=== PATIENT | male | born 1985 | race Caucasian/White ===

== ENCOUNTER 2016-09-20 09:58 | Outpatient (CLI) | payer BC ==
--- NOTE | 2016-09-20 20:41 | CT ---
CT OF THE PEVIS WITH CONTRAST: Date: 09/20/[address] of the pelvis was performed for evaluation of right groin pain. There is a concern about a possible hernia. Axial slices were acquired, then coronal and sagittal reconstructions were done. FINDINGS: No pelvic mass was evident. There is no evidence of an inguinal hernia. No adenopathy, free fluid, o r inflammatory changes were evident within the pelvis. The visible portions of bowel have contrast w ithin them and do not seem dilated or have substantial wall thickening. There is a central disc prot rusion at L4-L5 that does appear to impinge upon the thecal sac centrally. The L5-S1 disc may be beg inning to degenerate. The superficial soft tissues of the pelvic ring, including the suprapubic area , showed no focal findings of concern. IMPRESSION: 1. No acute pelvic findings to explain the patient's pain. 2. Moderate central disc protrusion at L4-L5, which may or may not be significant. POS: HOME
== END 2016-09-20 09:59 | disposition home or self-care (01) ==
LOC: BURCT 09:58
PROVIDERS: ATTEND Family Medicine
DX: R10.2 Pelvic and perineal pain (principal); M51.26 Other intervertebral disc displacement, lumbar region
CPT/HCPCS: 72193

== ENCOUNTER 2019-07-07 12:07 | Outpatient (CLI) | payer BC ==
--- NOTE | 2019-07-07 15:42 | RAD ---
CHEST TWO VIEWS: 07/07/19 No major lobar infiltrate was seen. There is a question of some slight increase in the markings in th e right upper lobe, however. I cannot absolutely rule out an early infiltrate here. The lungs are oth erwise normal in appearance. There are no effusions. The mediastinum appears normal. The heart is nor mal in size. IMPRESSION: Equivocal increase in right upper lobe markings. This may or may not be significant. Code T POS: HOME
== END 2019-07-07 12:08 | disposition home or self-care (01) ==
LOC: BURRAD 12:07
PROVIDERS: ATTEND Family Medicine
DX: J11.1 Influenza due to unidentified influenza virus with other respiratory manifestations (principal)
CPT/HCPCS: 71046

== ENCOUNTER 2021-08-31 10:19 | Outpatient (CLI) | payer BC | END 2021-08-31 10:20 | disposition home or self-care (01) | LOC: BURRAD 10:19 | PROVIDERS: ATTEND Family Medicine | DX: M54.2 Cervicalgia (principal) | CPT/HCPCS: 72040 ==